=== PATIENT | female | born 1980 | race Caucasian/White ===

== ENCOUNTER → 2016-11-27 | Outpatient (CLI) | payer OTHER ==
[~2016-11-27] MED LIST: FEXO-14 PO; FRS325T PO; LACT1CAP64 PO; MULT-35 PO; PREN1TAB39 PO
--- NOTE | 2016-11-27 11:20 | Diagnostic Imaging Report ---
EXAMINATION: Ultrasound of the liver. INDICATION: Abnormal stool, acholic stool. FINDINGS: The visualized portions of the pancreas appear unremarkable. The liver demonstrates no focal mass. There is hepatopetal flow in the portal vein. The CBD is 4 mm in caliber. The gallbladder demonstrates no stones or wall thickening. The right kidney is 10.3 cm in length with no hydronephrosis or focal lesion. No fluid collection in the upper right abdomen is seen. The sonographic Sahni sign was reportedly negative. IMPRESSION: Unremarkable exam. Dictated by: Dictated on workstation # [id number]
== END ==
LOC: RAD 09:06
PROVIDERS: ATTEND Family Medicine
DX: R19.5 Other fecal abnormalities (principal)
CPT/HCPCS: 76705

== ENCOUNTER 2016-12-06 05:36 | Outpatient (CLI) | payer OTHER ==
[~2016-12-06] VITALS: Ht 157.5 cm; Wt 59.0 kg
[~2016-12-06 05:36] MED LIST changes: -FEXO-14 PO; -LACT1CAP64 PO; -MULT-35 PO
[2016-12-06] MEDS ORDERED: LACT1CAP64 PO (10:17)
[2016-12-06] MEDS ORDERED: MULT-35 PO (10:17)
[2016-12-06] MEDS ORDERED: FEXO-14 PO (10:17)
== END 2016-12-06 10:24 ==
LOC: PREOP 05:36
PROVIDERS: ATTEND Surgery
DX: Z01.818 Encounter for other preprocedural examination (principal); R10.9 Unspecified abdominal pain; R14.0 Abdominal distension (gaseous)

== ENCOUNTER → 2016-12-07 | Outpatient (CLI) | payer OTHER ==
[~2016-12-07] MED LIST changes: +CATHETER FLUSH 10 ML SYR IV PRN; +FEXO-14 PO; +LACT1CAP64 PO; +MULT-35 PO
--- NOTE | 2016-12-07 14:17 | Diagnostic Imaging Report ---
EXAMINATION: HIDA with EF measurements Indication: Abdominal pain TECHNIQUE: After the intravenous administration of 5 mCi of Tc 99m Choletec, imaging over the abdomen was obtained. This was followed by administration of Ensure orally to stimulate intrinsic CCK secretion, followed by continued imaging with ejection fraction measured. FINDINGS: There is homogeneous uptake in the liver with prompt bile duct and gallbladder filling seen. Bowel activity is seen at 25 minutes. Based on further imaging and gallbladder area of interest activity measurements after the administration of Ensure, the gallbladder ejection fraction is estimated at 30%. IMPRESSION: 1. Normal hepatobiliary uptake and Gallbladder filling. 2. Biliary dyskinesia. Reduced gallbladder ejection fraction. Dictated by: Dictated on workstation # [id number]
== END ==
LOC: CARD 10:05
PROVIDERS: ATTEND Surgery
DX: K82.8 Other specified diseases of gallbladder (principal)
CPT/HCPCS: 78227

== ENCOUNTER 2016-12-11 11:02 | Day surgery (SDC) | payer OTHER ==
[~2016-12-11] VITALS: Ht 157.5 cm; Wt 59.0 kg
[~2016-12-11 11:02] MED LIST changes: -CATHETER FLUSH 10 ML SYR IV PRN
[2016-12-11 11:15] VITALS: BP 102/76
[2016-12-11] MEDS ORDERED: FLUMAZENIL (ROMAZICON) 0.1 MG/ML 5 ML VIAL INJ PRN (11:30)
[2016-12-11] MEDS ORDERED: HURRICAINE EXT TUBE (BENZOCAINE) XX PRN (11:30)
[2016-12-11] MEDS ORDERED: NS IV 1000 ML 1,000 ML IV PRN (11:30)
[2016-12-11] MEDS ORDERED: NS IV 1000 ML 1,000 ML ONE (11:36)
[2016-12-11] MEDS ORDERED: proPOfol 200 MG/20 ML (DIPRIVAN) VIAL IV ONE (12:21)
[2016-12-11] MEDS ORDERED: MIDAZOLAM 2 MG/2 ML (VERSED) VIAL ONE (12:21)
[2016-12-11] MEDS ORDERED: HURRICAINE EXT TUBE (BENZOCAINE) ONE (12:22)
--- NOTE | 2016-12-11 12:27 | Progress Note-Pre Operative ---
Pre-Operative Progress Note H&P Reviewed The H&P was reviewed, patient examined and no changes noted. Date H&P Reviewed: Dec 11, 2016 Time H&P Reviewed: 11:48 Pre-Operative Diagnosis: Gastritis, Rectal bleed MELONIE PEREYRA DO Dec 11, 2016 12:27
[2016-12-11 13:10] VITALS: BP 104/56
[2016-12-11 13:40] VITALS: BP 91/62
--- NOTE | 2016-12-11 13:45 | Progress Note-Post Operative ---
Post-Operative Progess Note Surgeon (s)/Education Finance Processor (s) Surgeon MELONIE PEREYRA DO Education Finance Processor: none Pre-Operative Diagnosis Gastritis, Rectal bleed Post-Operative Diagnosis same plus internal hemorrhoids and ??melanosis coli Post-Op Procedure Note Date of Procedure: Dec 11, 2016 Name of Procedure Performed: EGD with biopsy Colonoscopy with biopsy Description of the Procedure: egd, colonoscopy Findings of the Procedure see post op diagnosis Anesthesia Type IV sedation by anesthesiologist Estimated blood loss (mL): scant Specimen(s) collected/removed antral bx colon bx -descending colon and sigmoid MELONIE PEREYRA DO Dec 11, 2016 13:45
[2016-12-11 13:50] VITALS: BP 91/62
--- NOTE | 2016-12-11 14:30 | OPERATIVE REPORT ---
DATE OF SERVICE: 12/11/2016 PREOPERATIVE DIAGNOSES: 1. Gastritis. 2. Rectal bleed. POSTOPERATIVE DIAGNOSES: 1. Gastritis. 2. Rectal bleed. 3. Internal hemorrhoids. 4. 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 PROCEDURE: 1. Esophagogastroduodenoscopy with biopsy. 2. Colonoscopy with cold biopsy. SURGEON: Dr. Colin Sahu UTILITIES SERVICE INVESTIGATOR: None. ANESTHESIA: IV sedation by the anesthesiologist. SPECIMENS: 1. One biopsy from the antrum. 2. One biopsy from the descending colon. 3. One biopsy from the sigmoid. BLOOD LOSS: Scant. FLUIDS: Per anesthesia. POSTOPERATIVE CONDITION: Stable. INDICATION FOR PROCEDURE: The patient is a 36-year-old female who has been having some bloating, abdominal pain, possible heartburn as well as had some rectal bleeding and needed workup FINDINGS: The patient had some gastritis, biopsy was done. She also had what looked like possibly melanosis coli and she had some small internal hemorrhoids, but otherwise no obvious pathology in the colon. PROCEDURE NOTE: After informed consent was obtained, the patient was brought to the endoscopy suite, placed in the left lateral decubitus position. She was administered IV sedation. During the carotid artery stenosis, her vitals were monitored by the anesthesiologist. The scope was inserted down the mouth, down the esophagus and into the stomach. It looked like there was redness in the antrum of the stomach, went into the 1st portion of the duodenum. Maybe a little bit of redness here but it looked otherwise okay. Decided to back out and do a biopsy of the antrum. Took a biopsy and then looked at the rest of the body of the stomach and then retroflexed. Looked like there may have been a small hiatal hernia but no obvious pathology. I then removed the scope. The GE junction looked good. Z-line looked good. Slowly withdrew the scope up into the esophagus and out of the oropharynx. I then switched scopes, went to the other side and did the colonoscopy. Inserted the scope, pushed all the way to about 140 cm where I was able to evaluate the cecum. Took a picture of the appendiceal orifice. Noted the ileocecal valve and able to get into the terminal ileum, took a picture. Then slowly withdrew the scope, insufflating to look circumferentially at the conway, looking at the cecum, up the ascending colon to the hepatic flexure, then down the transverse colon to the splenic flexure and then into the descending colon. I saw some what looked like mild changes in the wall of the colon in this area. I elected to do a biopsy to rule out melanosis coli. I did a biopsy in the descending colon and then down and did another biopsy in the sigmoid. Then continued down into the rectum, retroflexed in the rectal vault. I saw some internal hemorrhoids, took a picture of this and then removed the scope. The patient tolerated the procedure and was transferred to recovery room in stable condition. Job ID: [id number] DocumentID: [id number] Dictated Date: 12/11/2016 13:47:15 Flexographic Printing Machinist Date: 12/11/2016 14:29:24 Dictated By: COLIN SAHU DO
== END 2016-12-11 13:50 | disposition home or self-care (01) ==
LOC: ENDO 11:02
PROVIDERS: ATTEND Surgery
DX: K29.70 Gastritis, unspecified, without bleeding (principal); K64.8 Other hemorrhoids; K62.5 Hemorrhage of anus and rectum
CPT/HCPCS: 84703; 88305

== ENCOUNTER → 2016-12-28 | Outpatient (CLI) | payer OTHER ==
--- NOTE | 2016-12-28 15:38 | Diagnostic Imaging Report ---
Transabdominal and transvaginal pelvic ultrasound. INDICATION: Pelvic pain. Menometrorrhagia. FINDINGS: The uterus is 8.6 x 4.7 x 4.3 cm. The endometrial stripe thickness is 8 mm with a small amount of fluid seen in the endometrial cavity. No myometrial focal mass is seen. The left ovary is 2.4 x 1.7 x 1.8 cm. The right ovary is 3.6 x 2.1 x 3.3 cm. There is a lesion in the right ovary with thickened rim and central cystic area measuring 2.1 x 1.5 x 1.9 cm with increased vascularity likely related to an involuting corpus luteum cyst. Arterial and venous waveforms are seen in the right ovary and arterial waveforms are demonstrated in the left ovary. No significant free fluid or solid mass is seen in the pelvis. IMPRESSION: 1.5 cm lesion in the right ovary is likely an involuting corpus luteum cyst. Dictated by: Dictated on workstation # [id number]
== END ==
LOC: RAD 09:52
PROVIDERS: ATTEND Obstetrics & Gynecology
DX: N92.1 Excessive and frequent menstruation with irregular cycle (principal); N93.8 Other specified abnormal uterine and vaginal bleeding; N83.201 Unspecified ovarian cyst, right side
CPT/HCPCS: 76830; 76856

== ENCOUNTER 2017-03-27 12:44 | Outpatient (CLI) | payer OTHER ==
[~2017-03-27] VITALS: Ht 157.5 cm; Wt 58.5 kg
[2017-03-27 13:00] VITALS: BP 108/70
[2017-03-27 13:24] LABS: BASOPHILS % (AUTO) 1 % (0-10); EOSINOPHILS # (AUTO) 0.4 10^3/uL (0.0-0.3); EOSINOPHILS % (AUTO) 6 % (0-10); LYMPHOCYTES # (AUTO) 1.9 X 10^3 (1.0-4.0); LYMPHOCYTES % (AUTO) 30 % (12-44); MEAN CORPUSCULAR HEMOGLOBIN 26 PG (25-34); MEAN CORPUSCULAR HGB CONC 31 G/DL (32-36); MEAN CORPUSCULAR VOLUME 85 FL (80-99); MEAN PLATELET VOLUME 11.5 FL (7.4-10.4); MONOCYTES # (AUTO) 0.5 X 10^3 (0.0-1.0); MONOCYTES % (AUTO) 7 % (0-12); NEUTROPHILS # (AUTO) 3.6 X 10^3 (1.8-7.8); NEUTROPHILS % (AUTO) 57 % (42-75); PLATELET COUNT 252 10^3/uL (130-400); RED BLOOD COUNT 3.97 10^6/uL (4.35-5.85); WHITE BLOOD COUNT 6.3 10^3/uL (4.3-11.0)
== END 2017-03-27 13:07 | disposition home or self-care (01) ==
LOC: PREOP 12:44
PROVIDERS: ATTEND Surgery
DX: Z01.812 Encounter for preprocedural laboratory examination (principal); Z11.2 Encounter for screening for other bacterial diseases; K82.8 Other specified diseases of gallbladder
CPT/HCPCS: 36415; 85025; 87081

== ENCOUNTER 2017-04-02 08:25 | Day surgery (SDC) | payer OTHER ==
[~2017-04-02] VITALS: Ht 157.5 cm; Wt 58.5 kg
[2017-04-02] MEDS ORDERED: ceFAZolin 2 GM/NS 50 ML IV ONE (09:00)
[2017-04-02] MEDS ORDERED: FAMOTIDINE 20MG/2ML IV (PEPCID) IV ONE (09:15)
[2017-04-02] MEDS ORDERED: SCOPOLAMINE 1.5 MG (TRANSDERM-SCOP) PATCH TOP ONE (09:15)
--- NOTE | 2017-04-02 09:21 | History & Physical-Surgical ---
HPO-Surgical History of Present Illness Chief Complaint: Pt with LUQ pain and pain with all foods, "even water". HIDA scan showed low EF, basically read as biliary dyskinesia. Diagnosis/Surgical Indication: Biliary Dyskinesia, HX of Gastritis, Internal hemorrhoids Procedure: LAPAROSCOPIC CHOLECYSTECTOMY WITH POSSIBLE CHOLANGIOGRAM; POSSIBLE OPEN, umbilical hernia repair Date of Surgery: Apr 02, 2017 Weight (Pounds): 129 Weight (Ounces): 0.0 Height (Feet): 5 Height (Inches): 2.00 Allergies and Home Medications Allergies Coded Allergies: No Known Drug Allergies (Unverified , 12/06/16) Home Medications No Active Prescriptions or Reported Meds Past Ebuvvpf-Fgiydd-Txfecz Hx Patient Social History Alcohol Use: Rarely Uses Recreational Drug Use: No Smoking Status: Never a Smoker Recent Hopitalizations: No Seasonal Allergies Seasonal Allergies: Yes Surgeries HX Surgeries: Yes (WISDOM TEETH) Surgeries: Section Respiratory Hx Respiratory Disorders: No Cardiovascular Hx Cardiovascular Disorders: No Neurological Hx Neurological Disorders: No (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 7) Reproductive System Hx Reproductive Disorders: No Sexually Transmitted Disease: No HIV/AIDS: No Female Reproductive Disorders: Menstrual Problems, Ovarian Cyst Genitourinary Hx Genitourinary Disorders: No Gastrointestinal Hx Gastrointestinal Disorders: Yes (ABD PAIN/BLOATING) Gastrointestinal Disorders: Abdominal Hernia, Chronic Constipation, Hemorrhoids , Gall Bladder Disease Musculoskeletal Hx Musculoskeletal Disorders: No Endocrine Hx Endocrine Disorders: No HEENT HX ENT Disorders: No (GLASSES/CONTACTS) Loss of Vision: Bilateral Hearing Impairment: Denies Cancer Hx Cancer: No Psychosocial Hx Psychiatric Problems: No Integumentary HX Skin/Integumentary Disorder: No Blood Transfusions Hx Blood Disorders: Yes (HX ANEMIA DURING ) Adverse Reaction to a Blood Tr: No Family Medical History Significant Family History: Cancer (mother), Hypertension (mother) Exam Vital Signs Capillary Refill : Labs Laboratory Tests Test 04/02/17 08:40 Range/Units Urine Test NEGATIVE NEGATIVE General Appearance: Alert, Oriented X3, No Acute Distress HEENT: Atraumatic, PERRLA, EOMI Respiratory: Clear to Auscultation, Normal Air Movement Cardiovascular: Regular Rate, No Murmurs Abdominal: Normal Bowel Sounds, Soft, No Hepatosplenomegaly Extremities: No Edema, No Tenderness/Swelling Skin: No Rashes, No Significant Lesion Neuro: Normal Gait, Normal Speech, Cranial Nerves 3-12 NL Psych/Mental Status: Mental Status NL Assessment/Plan Assessment and Plan Biliary Dyskinesia ?? small UH Plan Lap carlota with possible IOC, possible open. Risks and complications discussed, not limited to pain, bleeding, infection, scar, damage to bowel or bile ducts. All Questions answered to her satisfaction. Problems: MELONIE PEREYRA DO Apr 02, 2017 09:21
[2017-04-02] MEDS: LACTATED RINGERS 1,000 ML IV PRN ×2 (09:25→10:49)
[2017-04-02 09:32] VITALS: BP 105/73
[2017-04-02] MEDS ORDERED: LIDOCAINE/EPI 1%-1:200,000 (XYLOCAINE) 30 ML VIAL ONE (09:54)
[2017-04-02] MEDS ORDERED: MIDAZOLAM 2 MG/2 ML (VERSED) VIAL ONE (10:04)
[2017-04-02] MEDS ORDERED: fentaNYL INJECTION 250 MCG/5 ML AMP ONE (10:04)
[2017-04-02] MEDS ORDERED: ONDANSETRON 4 MG/2 ML (SDV) Z0FRAN ONE (10:12)
[2017-04-02] MEDS ORDERED: LACTATED RINGERS 0 ML IV ONE (10:12)
[2017-04-02] MEDS ORDERED: ROCURONIUM 50 MG/5 ML (ZEMURON) VIAL IV ONE (10:12)
[2017-04-02] MEDS ORDERED: SEVOFLURANE (ULTANE) 15 ML INHAL SOLN ONE ×4 (10:12→10:39)
[2017-04-02] MEDS ORDERED: proPOfol 200 MG/20 ML (DIPRIVAN) VIAL IV ONE (10:12)
[2017-04-02] MEDS ORDERED: LIDOCAINE PF 2% 5 ML (XYLOCAINE) VIAL ONE (10:39)
[2017-04-02] MEDS ORDERED: LACTATED RINGERS 1,000 ML IV ONE ×2 (10:39→10:48)
[2017-04-02] MEDS ORDERED: KETOROLAC 30 MG/ML VIAL IVP ONE (10:45)
[2017-04-02] MEDS ORDERED: ONDANSETRON 4 MG/2 ML (SDV) Z0FRAN IVP PRN (10:45)
[2017-04-02] MEDS ORDERED: HYDROmorphone (DILAUDID) 2 MG/ML VIAL IVP PRN (10:45)
[2017-04-02] MEDS ORDERED: DEXAMETHASONE PF 10 MG/ML (DECADRON) VIAL ONE (10:48)
[2017-04-02] MEDS ORDERED: GLYCOPYRROLATE 0.2 MG/ML (ROBINUL) 2 ML VIAL ONE (10:54)
[2017-04-02] MEDS ORDERED: NEOSTIGMINE (BLOXIVERZ ) 1 MG/1ML 10 ML VIAL ONE (10:54)
--- NOTE | 2017-04-02 11:02 | Progress Note-Post Operative ---
Post-Operative Progess Note Surgeon (s)/Doll Wig Maker (s) Surgeon MELONIE PEREYRA DO Doll Wig Maker: Lauren Pre-Operative Diagnosis Biliary Dyskinesia, HX of Gastritis, Internal Hemorrhoids Post-Operative Diagnosis Same, small UH Procedure & Operative Findings Date of Procedure 04/02/17 Procedure Performed/Findings Lap carlota with IOC Anesthesia Type GET 20ml Local lidocaine Estimated Blood Loss Estimated blood loss (mL): scant Specimens/Packing Specimens Removed GB and contents MELONIE PEREYRA DO Apr 02, 2017 11:02
[2017-04-02] MEDS ORDERED: HYDR-3812 PO (11:03)
--- NOTE | 2017-04-02 11:06 | Discharge Inst-Surgical ---
Discharge Inst-Surgical Depart Medication/Instructions New, Converted or Re-Newed RX: RX Given to Pt/Family Patient Instructions Follow up Appt: Make appointment for 1 week, . Instructions: No lifting greater than 10 pounds. No strenuous activity. May shower in 24 hours, no tub bath or soaking. Use incentive spirometer at home as directed. No Smoking Skin/Wound Care: May remove bandages. You need to leave the Dermabond on, it will fall off on its own. Symptoms to Report: Appetite Changes, Extremity Discoloration, Numbness/Tingling, Swelling Increased , Bleeding Excessive, Eyesight Changes, Pain Increased, Urine Color Change, Constipation(Persistent), Fever over 101 degree F, Pain/Pressure in chest, Urinating Difficulty, Cough Up/Vomit Blood, Heart Beat Irreg/Pounding, Pain/ Pressure in jaw, Vaginal Bleeding Increase, Cramps in feet or legs, Lightheadedness, Pain/Pressure in shoulder, Diarrhea(Persistent), Memory Changes Suddenly, Questions/Concerns, Weight gain consecutive days, Dizziness/ Fainting, Nausea/Vomiting, Shortness of Breath, Weight gain over 2 pounds. If eyes or skin turn yellow notify physician. If questions or concerns contact your physician Or seek help at emergency department. Activity Activity as Tolerated: Yes Activity Instructions: Avoid Pulling & Pushing, Avoid Stress to Incision Driving Instructions: No Driving/Refer to Dr. Nettles Discharge Diet: Avoid Fatty Foods (no fried foods) Diet After 24 Hours: Clear Liquid if Nauseous If Any Problems/Questions/Issu: Contact Your Physician, Go to Emergency Room Skin/Wound Care Infection Signs and Symptoms: Increased Redness, Foul Odor of Wound, Increased Drainage, Skin Itchy or Has a Rash, Increased Swelling, Temperature Above 101 F Wound Care Comment: Heating pad to neck or shoulder blade tonight for pain Stitches/[place]/Dermabond Dis: Dermabond Ice Pack: Ice On and Off Site MELONIE PEREYRA DO Apr 02, 2017 11:06
[2017-04-02] MEDS ORDERED: KETOROLAC 30 MG/ML VIAL ONE (11:19)
[2017-04-02] MEDS ORDERED: morphine INJ 10 MG/ML 1ML (SYR OR VIAL) ONE (11:20)
[2017-04-02] MEDS: morphine INJ 10 MG/ML 1ML (SYR OR VIAL) IVP PRN ×2 (11:35→11:40)
[2017-04-02 12:10] VITALS: BP 102/67
--- NOTE | 2017-04-02 12:33 | Anesthesia-General Post-Op ---
General Patient Condition Mental Status/LOC: Same as Preop Cardiovascular: Satisfactory Nausea/Vomiting: Absent Respiratory: Satisfactory Pain: Controlled Complications: Absent Post Op Complications Complications None Follow Up Care/Instructions Patient Instructions None needed. Anesthesia/Patient Condition Patient Condition Patient is doing well, no complaints, stable vital signs, no apparent adverse anesthesia problems. No complications reported per nursing. D/C home per [facility] Criteria: BLACK Biswas DO Apr 02, 2017 12:33
[2017-04-02 12:40] VITALS: BP 101/67
[2017-04-02 13:10] VITALS: BP 101/64
--- NOTE | 2017-04-02 13:36 | Diagnostic Imaging Report ---
EXAMINATION: Fluoroscopy INDICATION: Left cholecystectomy, abdominal pain Fluoroscopic assistance was provided for Dr. Colin Sahu, during his laparoscopic cholecystectomy procedure. 14 seconds of fluoroscopy time was utilized. Multiple spot films of the right upper quadrant were received from the OR. The common bile duct has been opacified via the cystic duct catheter. The duct, where visualized shows no sign of a retained calyxes. There is extension of the contrast into the small bowel. There is also extravasation of the contrast. IMPRESSION: The common bile duct, where visualized, shows no evidence for retained calculus. Dictated by: Dictated on workstation # [id number]
--- NOTE | 2017-04-02 16:15 | OPERATIVE REPORT ---
DATE OF SERVICE: 04/02/2017 PREOPERATIVE DIAGNOSES: Biliary dyskinesia, possible small umbilical hernia. POSTOPERATIVE DIAGNOSES: Biliary dyskinesia, possible small umbilical hernia. PROCEDURE: Laparoscopic cholecystectomy, intraoperative cholangiogram. SURGEON: Colin Sahu DO. POLICE LIEUTENANT PRECINCT: Dr. Aguilar. ANESTHESIA: General endotracheal tube with approximately 20 mL of local injected by myself. SPECIMEN: Gallbladder and contents. BLOOD LOSS: Scant. FLUIDS: Per anesthesia. POSTOPERATIVE CONDITION: Stable. INDICATION FOR PROCEDURE: The patient is a 36-year-old female, who has been having abdominal pain usually in the left upper quadrant, but she had a HIDA scan which showed a low ejection fraction, which was diagnostic for biliary dyskinesia. She had pain with all foods and she decided she wanted to get her gallbladder removed with the understanding that removing it may not take care of all her complaints. FINDINGS: The patient had a mildly distended gallbladder, which was indicative of some biliary dyskinesia. She also had, looked like a muscle band coming across it, which may have also been affecting her biliary problems possibly slowing down the release of the bile from the gallbladder, some small adhesions but no other obvious pathology. PROCEDURE NOTE: After informed consent was obtained, the patient was brought to the operating room, placed on the table in supine position. She was sterilely prepped and draped in a normal fashion. Local lidocaine was used to infiltrate the skin below the umbilicus. The incision #11 blade, carried down through the skin and the subcutaneous tissue then deepened down the subcutaneous tissue with Bovie electrocautery down to the fascia. Fascia incised with Bovie electrocautery and bluntly entered the abdomen, swept the finger around, placed 0 Vicryl [id number] suture. There was a very small umbilical hernia tried to hopefully get this with 0 Vicryl suture to be placed. We placed an 11 mm trocar port under direct visualization, created pneumoperitoneum and then placed 3 more ports in a normal fashion using local lidocaine. An 11 blade for stab incision and the VersaStep system, all done under direct visualization, one in subxiphoid and 2 in the right lower quadrant. The patient was then placed slightly in reverse Trendelenburg and rotated left. Able to visualize the gallbladder and grasp the fundus and taken in superior direction. Noted a band coming across the gallbladder kind of bisecting this with a larger portion distally and a small portion superiorly. It looked like it might have been cystic artery. Able to grasp down the Candida's pouch and pulled it from a lateral direction started dissecting off small adhesions. Once these were freed then able to get around the cystic duct and the cystic artery and placed 1 clip distally in the cystic duct and one distally and 2 proximally in the cystic artery. Cut the cystic duct longterm through with Metzenbaum scissors. Placed a cholangiogram catheter and shot a cholangiogram. Good spillage of dye down the common bile duct into the small intestine. The balloon was in the common bile duct, so I did not go up above the cystic duct, but could see the common and the cystic duct takeoff, so removed the cholangiogram catheter, placed 2 clips proximally on the cystic duct then cut the cystic duct and cystic artery with Metzenbaum scissors and removed gallbladder from bed liver with electrocautery and once it was completely removed, placed a bag in the abdomen, and placed the gallbladder in the bag and then removed this through the infraumbilical incision. We then placed the port back in. Copiously irrigated with normal saline and suctioned out, took pictures and at this point then placed the patient in supine and removed all ports under direct visualization, allowing pneumoperitoneum to escape as well as suctioned out. Closing infraumbilical incision with the 0 Vicryl suture previously placed. Copiously irrigated all incisions with normal saline. Closed in 3-small 5-mm incisions with single interrupted 4-0 undyed Monocryl subcuticular stitch. Closed the infraumbilical incision with 3 interrupted 4-0 undyed Monocryl subcuticular stitches. Area was cleaned and dried and Dermabond placed. The patient was then transferred to recovery room in stable condition. Sponge, instrument and needle counts correct at the end of the case. Dr. Aguilar assisted in this case by making incisions, placing trocars, and helping to identify anatomy and hold gallbladder up and out of the way as well as closing incisions. Her heart was vital. Job ID: [id number] DocumentID: [id number] Dictated Date: 04/02/2017 11:12:11 Pulp Grinder Date: 04/02/2017 15:43:13 Dictated By: DO TONG MAGANA
== END 2017-04-02 13:35 | disposition home or self-care (01) ==
LOC: SDC 08:25
PROVIDERS: ATTEND Surgery
DX: K81.1 Chronic cholecystitis (principal); J45.909 Unspecified asthma, uncomplicated
CPT/HCPCS: 84703; 88304; 94664

== ENCOUNTER 2017-04-06 03:22 | Observation (INO) | payer OTHER ==
[~2017-04-06] VITALS: Ht 157.5 cm; Wt 59.0 kg
[~2017-04-06 03:22] MED LIST changes: +HYDR-3812 PO
[2017-04-06] MEDS ORDERED: ONDANSETRON 4 MG/2 ML (SDV) Z0FRAN ONE (03:28)
[2017-04-06] MEDS ORDERED: fentaNYL INJECTION 100 MCG/2 ML AMP ONE (03:28)
[2017-04-06] MEDS ORDERED: NS IV 1000 ML 1,000 ML IV ONE (03:32)
[2017-04-06] MEDS ORDERED: ONDANSETRON 4 MG/2 ML (SDV) Z0FRAN IVP ONE (03:45)
[2017-04-06] MEDS ORDERED: fentaNYL INJECTION 100 MCG/2 ML AMP IVP ONE (03:45)
[2017-04-06 03:48] LABS: BASOPHILS % (AUTO) 1 % (0-10); EOSINOPHILS # (AUTO) 0.4 10^3/uL (0.0-0.3); EOSINOPHILS % (AUTO) 6 % (0-10); LYMPHOCYTES # (AUTO) 2.4 X 10^3 (1.0-4.0); LYMPHOCYTES % (AUTO) 39 % (12-44); MEAN CORPUSCULAR HEMOGLOBIN 26 PG (25-34); MEAN CORPUSCULAR HGB CONC 31 G/DL (32-36); MEAN CORPUSCULAR VOLUME 85 FL (80-99); MEAN PLATELET VOLUME 11.4 FL (7.4-10.4); MONOCYTES # (AUTO) 0.6 X 10^3 (0.0-1.0); MONOCYTES % (AUTO) 9 % (0-12); NEUTROPHILS # (AUTO) 2.9 X 10^3 (1.8-7.8); NEUTROPHILS % (AUTO) 47 % (42-75); PLATELET COUNT 238 10^3/uL (130-400); RED BLOOD COUNT 4.18 10^6/uL (4.35-5.85); RED CELL DISTRIBUTION WIDTH 13.7 % (10.0-14.5); WHITE BLOOD COUNT 6.2 10^3/uL (4.3-11.0)
[2017-04-06] MEDS ORDERED: HYDROmorphone (DILAUDID) 2 MG/ML VIAL ONE (03:50)
[2017-04-06] MEDS ORDERED: HYDROmorphone (DILAUDID) 2 MG/ML VIAL IVP STA ×2 (03:55→04:20)
[2017-04-06 04:08] LABS: ALANINE AMINOTRANSFERASE 32 U/L (0-55); ALBUMIN 3.9 GM/DL (3.2-4.5); ANION GAP 13 MMOL/L (5-14); ASPARTATE AMINO TRANSFERASE 31 U/L (5-34); BILIRUBIN,TOTAL 0.3 MG/DL (0.1-1.0); BLOOD UREA NITROGEN 15 MG/DL (7-18); BUN/CREATININE RATIO 19; CALCIUM 9.3 MG/DL (8.5-10.1); CARBON DIOXIDE 22 MMOL/L (21-32); CHLORIDE 105 MMOL/L (98-107); CREATININE SERUM 0.78 MG/DL (0.60-1.30); GFR ESTIMATED > 60; GLUCOSE 118 MG/DL (70-105); LIPASE 40 U/L (8-78); POTASSIUM 3.7 MMOL/L (3.6-5.0); SODIUM 140 MMOL/L (135-145); TOTAL PROTEIN 7.3 GM/DL (6.4-8.2); hs C REACTIVE PROTEIN 0.64 MG/DL (0.00-0.50)
[2017-04-06] MEDS ORDERED: PROMETHAZINE INJ 25 MG/ML (PHENERGAN) AMP ONE (04:15)
--- NOTE | 2017-04-06 04:25 | ED Abdominal Pain ---
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 PT REPORTS SHE HAD A LAP ANILA X5 DAYS AGO. Sepsis Screen: No Definite Risk Source of Information: Patient Exam Limitations: No Limitations History of Present Illness Time Seen By Provider: 03:27 Initial Comments This 36-year-old woman presents to the emergency room with complaints of right upper quadrant, epigastric, lower chest and right flank pain that started about 30 minutes prior to arrival. She also has significant shortness of air. She was able to drive herself to the emergency room. She had a laparoscopic cholecystectomy with Dr. Pereyra on April 01. She denies any cough, fever, or vomiting. Her last bowel movement was yesterday but she had no bowel movements for 5 days prior to that. She used milk of magnesia to produce the bowel movement. She has been using hydrocodone at home which has not been helpful for this pain. Allergies and Home Medications Allergies Coded Allergies: No Known Drug Allergies (Unverified , 12/06/16) Home Medications Hydrocodone/Acetaminophen 1 Each Tablet, 1 TAB PO Q6H PRN, #10 Ref 0 Prescribed by: MELONIE PEREYRA on 04/02/17 1103 Review of Systems Constitutional: chills, No fever EENTM: No Symptoms Reported Respiratory: See HPI Cardiovascular: See HPI Gastrointestinal: See HPI Genitourinary: No Symptoms Reported Musculoskeletal: no symptoms reported Skin: no symptoms reported Psychiatric/Neurological: No Symptoms Reported Endocrine: No Symptoms Reported Past Sonluli-Rkdlzs-Jwllia Hx Patient Social History Alcohol Use: Denies Use Recreational Drug Use: No Smoking Status: Never a Smoker Recent Foreign Travel: No Contact w/Someone Who Travel: No Recent Infectious Disease Expo: No Recent Hopitalizations: No Immunizations Up To Date Tetanus Booster (TDap): Unknown Seasonal Allergies Seasonal Allergies: Yes Surgeries HX Surgeries: Yes (WISDOM TEETH) Surgeries: Section, Gallbladder Respiratory Hx Respiratory Disorders: No Cardiovascular Hx Cardiac Disorders: No Neurological Hx Neurological Disorders: No (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 pylori) Gastrointestinal Disorders: Abdominal Hernia, Chronic Constipation, Hemorrhoids , Gall Bladder Disease Musculoskeletal Hx Musculoskeletal Disorders: No Endocrine Hx Endocrine Disorders: No HEENT HX ENT Disorders: No (GLASSES/CONTACTS) Loss of Vision: Bilateral Hearing Impairment: Denies Cancer Hx Cancer: No Psychosocial Hx Psychiatric Problems: No Integumentary HX Skin/Integumentary Disorder: No Blood Transfusions Hx Blood Disorders: Yes (HX ANEMIA DURING ) Adverse Reaction to a Blood Tr: No Family Medical History Significant Family History: Cancer, Hypertension Physical Exam Vital Signs VS - Last 72 Hours, by Label 04/06/17 04/06/17 03:26 05:43 Temp 96.1 Pulse 101 78 Resp 20 14 B/P (MAP) 132/92 129/88 Pulse Ox 98 100 O2 Delivery Room Air Room Air Capillary Refill : Less Than 3 Seconds General Appearance: WD/WN, moderate distress HEENT: PERRL/EOMI, normal ENT inspection Neck: normal inspection Respiratory: chest non-tender, lungs clear, normal breath sounds, no respiratory distress, no accessory muscle use Cardiovascular: regular rate, rhythm, no edema, no murmur Gastrointestinal: normal bowel sounds, soft, tenderness (epigastrium and right upper quadrant) Extremities: normal inspection, no pedal edema 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, no motor/sensory deficits, alert, normal mood/affect, oriented x 3 Skin: normal color, warm/dry Progress/Results/Core Measures Results/Orders Lab Results Laboratory Tests Test 04/06/17 03:31 04/06/17 04:57 Range/Units White Blood Count 6.2 4.3-11.0 10^3/uL Red Blood Count 4.18 L 4.35-5.85 10^6/uL Hemoglobin 11.0 L 11.5-16.0 G/DL Hematocrit 36 35-52 % Mean Corpuscular Volume 85 80-99 FL Mean Corpuscular Hemoglobin 26 25-34 PG Mean Corpuscular Hemoglobin Concent 31 L 32-36 G/DL Red Cell Distribution Width 13.7 10.0-14.5 % Platelet Count 238 130-400 10^3/uL Mean Platelet Volume 11.4 H 7.4-10.4 FL Neutrophils (%) (Auto) 47 42-75 % Lymphocytes (%) (Auto) 39 12-44 % Monocytes (%) (Auto) 9 0-12 % Eosinophils (%) (Auto) 6 0-10 % Basophils (%) (Auto) 1 0-10 % Neutrophils # (Auto) 2.9 1.8-7.8 X 10^3 Lymphocytes # (Auto) 2.4 1.0-4.0 X 10^3 Monocytes # (Auto) 0.6 0.0-1.0 X 10^3 Eosinophils # (Auto) 0.4 H 0.0-0.3 10^3/uL Basophils # (Auto) 0.0 0.0-0.1 10^3/uL Sodium Level 140 135-145 MMOL/L Potassium Level 3.7 3.6-5.0 MMOL/L Chloride Level 105 98-107 MMOL/L Carbon Dioxide Level 22 21-32 MMOL/L Anion Gap 13 5-14 MMOL/L Blood Urea Nitrogen 15 7-18 MG/DL Creatinine 0.78 0.60-1.30 MG/DL Estimat Glomerular Filtration Rate > 60 BUN/Creatinine Ratio 19 Glucose Level 118 H 70-105 MG/DL Calcium Level 9.3 8.5-10.1 MG/DL Total Bilirubin 0.3 0.1-1.0 MG/DL Aspartate Amino Transf (AST/SGOT) 31 5-34 U/L Alanine Aminotransferase (ALT/SGPT) 32 0-55 U/L Alkaline Phosphatase 60 40-136 U/L C-Reactive Protein High Sensitivity 0.64 H 0.00-0.50 MG/DL Total Protein 7.3 6.4-8.2 GM/DL Albumin 3.9 3.2-4.5 GM/DL Lipase 40 8-78 U/L Serum Test, Qualitative NEGATIVE NEGATIVE Urine Color YELLOW Urine Clarity SLIGHTLY CLOUDY Urine pH 7 5-9 Urine Specific [place] 1.010 L 1.016-1.022 Urine Protein 1+ H NEGATIVE Urine Glucose (UA) NEGATIVE NEGATIVE Urine Ketones NEGATIVE NEGATIVE Urine Nitrite NEGATIVE NEGATIVE Urine Bilirubin NEGATIVE NEGATIVE Urine Urobilinogen NORMAL NORMAL MG/DL Urine Leukocyte Esterase 2+ H NEGATIVE Urine RBC (Auto) NEGATIVE NEGATIVE Urine RBC NONE /HPF Urine WBC 0-2 /HPF Urine Squamous Epithelial Cells 10-25 H /HPF Urine Crystals NONE /LPF Urine Bacteria TRACE /HPF Urine Casts NONE /LPF Urine Mucus SMALL H /LPF Urine Culture Indicated NO My Orders Orders - BRUEGGEMANN,JESSI T MD Fentanyl Injection (Sublimaze Injection (04/06/17 03:45) Ondansetron Injection (Zofran Injectio (04/06/17 03:45) Cbc With Automated Diff (04/06/17 03:32) Comprehensive Metabolic Panel (04/06/17 03:32) Hs C Reactive Protein (04/06/17 03:32) Lipase (04/06/17 03:32) Ua Culture If Indicated (04/06/17 03:32) Saline Lock/Iv-Start (04/06/17 03:32) Ns Iv 1000 Ml (Sodium Chloride 0.9%) (04/06/17 03:32) Fentanyl Injection (Sublimaze Injection (04/06/17 03:28) Ondansetron Injection (Zofran Injectio (04/06/17 03:28) Hcg,Qualitative Serum (04/06/17 03:44) Hydromorphone Injection (Dilaudid Inject (04/06/17 03:55) Hydromorphone Injection (Dilaudid Inject (04/06/17 03:50) Ct Katie Chest/Noang Abd-Pelv W (04/06/17 04:04) Promethazine Injection (Phenergan Injec (04/06/17 04:30) Hydromorphone Injection (Dilaudid Inject (04/06/17 04:20) Promethazine Injection (Phenergan Injec (04/06/17 04:15) Iohexol Injection (Omnipaque 350 Mg/Ml 1 (04/06/17 04:45) Ns (Ivpb) (Sodium Chloride 0.9% Ivpb Bag (04/06/17 04:45) Lidocaine 2% Viscous 15 Ml (Xylocaine Vi (04/06/17 06:00) Antacid Suspension (Mylanta Suspension (04/06/17 06:00) Famotidine Injection (Pepcid Injection) (04/06/17 05:50) Ketorolac Injection (Toradol Injection) (04/06/17 07:15) Medications Given in ED Current Medications Medications Dose Ordered Sig/Dm Route Start Time Stop Time Status Last Admin Dose Admin Al Hydrox/Mg Hydrox/Simethicone 30 ml ONCE ONCE PO 04/06/17 06:00 04/06/17 06:01 DC 04/06/17 05:58 30 ML Fentanyl Citrate 75 mcg ONCE ONCE IVP 04/06/17 03:45 04/06/17 03:46 DC 04/06/17 03:36 75 MCG Iohexol 150 ml ONCE ONCE IV 04/06/17 04:45 04/06/17 04:46 DC 04/06/17 04:35 125 ML Lidocaine HCl 15 ml ONCE ONCE PO 04/06/17 06:00 04/06/17 06:01 DC 04/06/17 05:58 15 ML Ondansetron HCl 8 mg ONCE ONCE IVP 04/06/17 03:45 04/06/17 03:46 DC 04/06/17 03:37 8 MG Promethazine HCl 12.5 mg ONCE ONCE IVP 04/06/17 04:30 04/06/17 04:31 DC 04/06/17 04:26 12.5 MG Sodium Chloride 100 ml ONCE ONCE IV 04/06/17 04:45 04/06/17 04:46 DC 04/06/17 04:35 80 ML Sodium Chloride 1,000 ml @ 0 mls/hr Q0M ONCE IV 04/06/17 03:32 04/06/17 03:34 DC 04/06/17 03:39 1,000 MLS/HR Vital Signs/I&O Vital Sign - Last 12Hours 04/06/17 04/06/17 03:26 05:43 Temp 96.1 Pulse 101 78 Resp 20 14 B/P (MAP) 132/92 129/88 Pulse Ox 98 100 O2 Delivery Room Air Room Air Blood Pressure Mean: 105 Progress Note #1: Time: 04:24 Progress Note Patient received fentanyl followed by Dilaudid for pain. Zofran was used for nausea. CT angiogram of the chest and CT of the abdomen and pelvis with contrast were ordered for further evaluation. Patient was unable to lie still for the CT scans due to pain and gagging. Phenergan and an additional 1 mg of Dilaudid were ordered for administration in CT. Progress Note #2: Time: 05:[address] scans revealed no pathology to account for patient's pain. GI cocktail and Pepcid will be administered. Progress Note #3: Time: 06:58 Progress Note GI cocktail and Pepcid did not improve her pain. Case was reviewed with Dr. Beal. He suggested discussing imaging with the radiologist again to determine if there is any evidence of bile leak. I did discuss with Dr. Gee with [facility]. There is no definite evidence of leak but this cannot be ruled out. She suggested following the CT with a hepatobiliary scan. Per prior discussion with Dr. Ronquillo, patient will be admitted for HIDA scan. Diagnostic Imaging Diagonstic Imaging: CT Plain Films/CT/US/NM/MRI: chest, abdomen, pelvis Comments CT of the chest, abdomen, and pelvis with angiogram of the chest viewed by me and report reviewed. No acute findings to account for her pain were identified. Specifically, there was no pulmonary embolus. Departure Communication Time/Spoke to Admitting Phy: 05:[address] Pereyra Impression Impression: Primary Impression: Epigastric pain Additional Impressions: Chest pain Qualified Codes: R07.9 - Chest pain, unspecified Nausea Disposition: ADMITTED INPATIENT Condition: Stable Admissions Decision to Admit Reason: Admit from ER (General) Decision to Admit/Date: Apr 06, 2017 Time/Decision to Admit Time: 06:50 Departure-Patient Inst. Referrals: VERONICA MARIN MD (PCP/Family) Primary Care Physician JESSI HOSKINS MD Apr 06, 2017 04:25
[2017-04-06] MEDS ORDERED: PROMETHAZINE INJ 25 MG/ML (PHENERGAN) AMP IVP ONE (04:30)
[2017-04-06] MEDS ORDERED: IOHEXOL 350 MG/ML 150 ML (OMNIPAQUE 350) VIAL IV ONE (04:45)
[2017-04-06] MEDS ORDERED: NS 100 ML (IVPB) BAG IV ONE (04:45)
[2017-04-06 05:08] LABS: BILIRUBIN,URINE NEGATIVE (NEGATIVE); KETONES,URINE NEGATIVE (NEGATIVE); LEUKOCYTE ESTERASE ,URINE 2+ (NEGATIVE); NITRITE,URINE NEGATIVE (NEGATIVE); PH,URINE 7 (5-9); PROTEIN,URINE 1+ (NEGATIVE); UROBILINOGEN,URINE NORMAL (NORMAL)
[2017-04-06 05:09] LABS: WBC,URINE 0-2 /HPF
[2017-04-06 05:43] VITALS: BP 129/88
[2017-04-06] MEDS ORDERED: FAMOTIDINE 20MG/2ML IV (PEPCID) IV STA (05:50)
[2017-04-06] MEDS ORDERED: ANTACID SUSP 30 ML UDC (MYLANTA) PO ONE (06:00)
[2017-04-06] MEDS ORDERED: LIDOCAINE 2% VISCOUS 15 ML UDC PO ONE (06:00)
[2017-04-06] MEDS ORDERED: KETOROLAC 30 MG/ML VIAL IVP ONE (07:15)
--- NOTE | 2017-04-06 08:08 | Diagnostic Imaging Report ---
INDICATION: Right upper quadrant pressure radiating to the right flank. Onset 30 minutes prior to the presentation. 4 days post laparoscopic cholecystectomy. TECHNIQUE: CT imaging of the chest following the administration of intravenous contrast with multiplanar including MIP reformatted images. Additional imaging through the abdomen and pelvis postcontrast. CORRELATION STUDY: CT chest 03/01/2015 CTA chest findings: There is no filling defect in the pulmonary arterial tree to suggest pulmonary embolism. Thoracic aorta unremarkable. Heart size normal. No pathologically enlarged mediastinal lymph nodes. Lung medina are clear. No infiltrate, effusion or pneumothorax. IMPRESSION: 1. No CT evidence for pulmonary embolism or otherwise acute intrathoracic abnormality. CT abdomen and pelvis findings: The patient is post cholecystectomy. Small amount of free fluid is noted in gallbladder fossa and subhepatic space. There is mild prominence of the intrahepatic bile ducts. Common bile duct appears to be normal in caliber. Additional small amount of free fluid within the pelvis. Two tiny foci of free air in the right upper quadrant laparoscopic portal site and in the subhepatic space present. The liver, spleen, pancreas, adrenal glands and kidneys are otherwise unremarkable. Abdominal aorta unremarkable. Gastrointestinal tract demonstrates no obstruction or inflammation. Uterus and right adnexa unremarkable. A 4.4 cm cyst in the left adnexa likely associated with the left ovary. IMPRESSION: 1. Status post cholecystectomy. Expected postoperative findings present. There is a small amount of free fluid in the right upper quadrant and in the pelvis. No definitive drainable abscess suggested at this time. 2. A 4.4 cm left ovarian cyst. A preliminary report was provided by [employer]. Dictated by: Dictated on workstation # [id number]
[2017-04-06 08:10] VITALS: BP_SYST 102; BP_SYST 130; BP_DIAS 68; BP_DIAS 78
[2017-04-06] MEDS ORDERED: HYDR-3812 PO (08:13)
[2017-04-06] MEDS: D5 NS 1000 ML IV SOLUTION 1,000 ML IV SCH ×2 (08:19→18:38)
[2017-04-06] MEDS: PANTOPRAZOLE 40 MG/10 ML (PROTONIX) VIAL IV SCH (08:20)
[2017-04-06] MEDS: CATHETER FLUSH 10 ML SYR IV PRN (08:44)
[2017-04-06] MEDS ORDERED: POLYETHYLENE GLYCOL 17 GM (MIRALAX) PACK PO NR (10:40)
--- NOTE | 2017-04-06 10:41 | History & Physical-Surgical ---
History of Present Illness History of Present Illness Reason for visit/HPI Pt had cholecystectomy on Sunday, stated she had normal postoperative pain until 4 am this morning. In ED pt stated: This 36-year-old woman presents to the emergency room with complaints of right upper quadrant, epigastric, lower chest and right flank pain that started about 30 minutes prior to arrival. She also has significant shortness of air. She was able to drive herself to the emergency room. She denies any cough, fever, or vomiting. Her last bowel movement was yesterday but she had no bowel movements for 5 days prior to that. She used milk of magnesia to produce the bowel movement. She has been using hydrocodone at home which has not been helpful for this pain. Now she still has moderate to severe epigastric pain and pin in right flank, controlled with iv pain meds. Pt is thirsty and would like something to drink. Date of Admission Apr 06, 2017 at 06:55 Time Seen by Provider: 09:56 I consulted on this patient on 04/06/17 10:35 Attending Physician Colin Pereyra DO Admitting Physician Dora Flores MD Consult Allergies and Home Medications Allergies Coded Allergies: No Known Drug Allergies (Unverified , 12/06/16) Home Medications Hydrocodone/Acetaminophen 1 Each Tablet, 1 TAB PO Q6H PRN for PAIN-MODERATE, #10 (Reported) Past Kjasyix-Fmnazl-Zaulzh Hx Patient Social History Alcohol Use: Denies Use Recreational Drug Use: No Smoking Status: Never a Smoker Recent Foreign Travel: No Contact w/Someone Who Travel: No Recent Infectious Disease Expo: No Recent Hopitalizations: No Immunizations Up To Date Tetanus Booster (TDap): Unknown Seasonal Allergies Seasonal Allergies: Yes Surgeries HX Surgeries: Yes (WISDOM TEETH) Surgeries: Section, Gallbladder Respiratory Hx Respiratory Disorders: No Cardiovascular Hx Cardiac Disorders: No Neurological Hx Neurological Disorders: No (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 pylori) Gastrointestinal Disorders: Abdominal Hernia, Chronic Constipation, Hemorrhoids , Gall Bladder Disease Musculoskeletal Hx Musculoskeletal Disorders: No Endocrine Hx Endocrine Disorders: No HEENT HX ENT Disorders: No (GLASSES/CONTACTS) Loss of Vision: Bilateral Hearing Impairment: Denies Cancer Hx Cancer: No Psychosocial Hx Psychiatric Problems: No Integumentary HX Skin/Integumentary Disorder: No Blood Transfusions Hx Blood Disorders: Yes (HX ANEMIA DURING ) Adverse Reaction to a Blood Tr: No Family Medical History Significant Family History: Cancer, Hypertension Constitutional: No chills, No diaphoresis EENTM: No hearing loss, No blurred vision, No epistaxis, No nose congestion Respiratory: No hemoptysis, No phlegm, short of breath Cardiovascular: chest pain, No edema, No palpitations Gastrointestinal: RUQ, abdominal pain (epigastric), nausea Physical Exam Vital Signs Vital Sign - Last 12Hours 04/06/17 03:26 Temp 96.1 Pulse 101 Resp 20 B/P (MAP) 132/92 Pulse Ox 98 O2 Delivery Room Air Capillary Refill : Less Than 3 Seconds General Appearance: WD/WN, Moderate Distress Eyes: Bilateral Eye PERRL, Bilateral Eye EOMI HEENT: Pharynx Normal, No Pale Conjunctivae (L), No Pale Conjunctivae (R), No Scleral Icterus (L), No Scleral Icterus (R) Neck: Normal Inspection, Supple, No Thyromegaly Respiratory: Lungs Clear, Normal Breath Sounds, No Accessory Muscle Use, No Respiratory Distress Cardiovascular: Regular Rate, Rhythm, No Murmur Gastrointestinal: No Organomegaly, Soft, Abnormal Bowel Sounds (decreased), No Distended, Guarding (voluntary) Back: No CVA Tenderness, No Vertebral Tenderness Extremity: No Calf Tenderness, No Pedal Edema Neurologic/Psychiatric: Alert, Oriented x3, No Motor/Sensory Deficits, Normal Mood/Affect Skin: Normal Color, Warm/Dry Data Review Labs Laboratory Tests 04/06/17 03:31: White Blood Count 6.2, Red Blood Count 4.18L, Hemoglobin 11.0L, Hematocrit 36, Mean Corpuscular Volume 85, Mean Corpuscular Hemoglobin 26, Mean Corpuscular Hemoglobin Concent 31L, Red Cell Distribution Width 13.7, Platelet Count 238, Mean Platelet Volume 11.4H, Neutrophils (%) (Auto) 47, Lymphocytes (%) (Auto) 39 , Monocytes (%) (Auto) 9, Eosinophils (%) (Auto) 6, Basophils (%) (Auto) 1, Neutrophils # (Auto) 2.9, Lymphocytes # (Auto) 2.4, Monocytes # (Auto) 0.6, Eosinophils # (Auto) 0.4H, Basophils # (Auto) 0.0, Sodium Level 140, Potassium Level 3.7, Chloride Level 105, Carbon Dioxide Level 22, Anion Gap 13, Blood Urea Nitrogen 15, Creatinine 0.78, Estimat Glomerular Filtration Rate > 60, BUN/ Creatinine Ratio 19, Glucose Level 118H, Calcium Level 9.3, Total Bilirubin 0.3 , Aspartate Amino Transf (AST/SGOT) 31, Alanine Aminotransferase (ALT/SGPT) 32, Alkaline Phosphatase 60, C-Reactive Protein High Sensitivity 0.64H, Total Protein 7.3, Albumin 3.9, Lipase 40, Serum Test, Qualitative NEGATIVE 04/06/17 04:57: Urine Color YELLOW, Urine Clarity SLIGHTLY CLOUDY, Urine pH 7, Urine Specific [place] 1.010L, Urine Protein 1+H, Urine Glucose (UA) NEGATIVE, Urine Ketones NEGATIVE, Urine Nitrite NEGATIVE, Urine Bilirubin NEGATIVE, Urine Urobilinogen NORMAL, Urine Leukocyte Esterase 2+H, Urine RBC (Auto) NEGATIVE, Urine RBC NONE , Urine WBC 0-2, Urine Squamous Epithelial Cells 10-25H, Urine Crystals NONE, Urine Bacteria TRACE, Urine Casts NONE, Urine Mucus SMALLH, Urine Culture Indicated NO Assessment/Plan Assessment/Plan Assessment/Plan Epigastric and RUQ pain - CTA shows no PE, HIDA negative for leak and CBD patent Constipation - Miralax Plan IV fluids, pain control, check amylase lipase and repeat CBC. Start clears , would monitor overnight because of pain control and to recheck the labs. Pt does appear to have moderate amount of retained fecal material, this could contribute to her pain. COLIN PEREYRA DO Apr 06, 2017 10:41
--- NOTE | 2017-04-06 10:45 | Diagnostic Imaging Report ---
INDICATION: Abdominal pain EXAMINATION: Hepatobiliary scan 5.47 mCi of technetium 99m Choletec was given intravenously. The common duct is patent. The gallbladder is surgically absent. There is no evidence for a bile leak. IMPRESSION: Patent common duct. No evidence for bile leak. Dictated by: Dictated on workstation # [id number]
[2017-04-06] MEDS: ONDANSETRON 4 MG/2 ML (SDV) Z0FRAN IVP PRN (10:50)
[2017-04-06] MEDS: morphine INJ 4 MG/ML 1 ML (VIAL/SYRINGE) IVP PRN ×4 (11:22→18:38)
[2017-04-06] MEDS: KETOROLAC 30 MG/ML VIAL IVP PRN ×2 (12:24→21:22)
[2017-04-06 12:29] VITALS: BP 134/89
[2017-04-06 16:20] VITALS: BP 114/73
[2017-04-06 19:05] VITALS: BP 111/72
[2017-04-06] MEDS ORDERED: ACETAMINOPHEN 500 MG TAB (TYLENOL) PO PRN (21:00)
[2017-04-07] VITALS: BP 103/67
[2017-04-07 04:25] VITALS: BP 102/68
[2017-04-07] MEDS: D5 NS 1000 ML IV SOLUTION 1,000 ML IV SCH ×2 (04:43→15:09)
[2017-04-07 05:25] LABS: BASOPHILS % (AUTO) 0 % (0-10); EOSINOPHILS # (AUTO) 0.1 10^3/uL (0.0-0.3); EOSINOPHILS % (AUTO) 2 % (0-10); LYMPHOCYTES # (AUTO) 0.8 X 10^3 (1.0-4.0); LYMPHOCYTES % (AUTO) 10 % (12-44); MEAN CORPUSCULAR HEMOGLOBIN 26 PG (25-34); MEAN CORPUSCULAR HGB CONC 31 G/DL (32-36); MEAN CORPUSCULAR VOLUME 86 FL (80-99); MEAN PLATELET VOLUME 10.8 FL (7.4-10.4); MONOCYTES # (AUTO) 0.7 X 10^3 (0.0-1.0); MONOCYTES % (AUTO) 9 % (0-12); NEUTROPHILS # (AUTO) 6.1 X 10^3 (1.8-7.8); NEUTROPHILS % (AUTO) 79 % (42-75); PLATELET COUNT 196 10^3/uL (130-400); RED BLOOD COUNT 3.93 10^6/uL (4.35-5.85); RED CELL DISTRIBUTION WIDTH 13.8 % (10.0-14.5); WHITE BLOOD COUNT 7.7 10^3/uL (4.3-11.0)
[2017-04-07 05:49] LABS: AMYLASE 44 U/L (25-125); LIPASE 24 U/L (8-78)
[2017-04-07 08:00] VITALS: BP 104/70
[2017-04-07] MEDS: PANTOPRAZOLE 40 MG/10 ML (PROTONIX) VIAL IV SCH (09:45)
[2017-04-07] MEDS: CALCIUM CARBONATE 500 MG (TUMS) TAB.CHEW PO PRN ×2 (10:42→17:04)
[2017-04-07] MEDS ORDERED: ANTACID SUSP 30 ML UDC (MYLANTA) PO NR (11:45)
[2017-04-07 12:00] VITALS: BP 111/78
--- NOTE | 2017-04-07 12:15 | Progress Note ---
Subjective Date Seen by Provider: Apr 07, 2017 Time Seen by Provider: 12:10 Subjective/Events-last exam Feeling a little better today. Passing some flatus. The pain in epigastric region is now occasionally and then will pass some flatus and feel better. Tolerating liquids. Some reflux she states. Slight fever over night, none since. She is using incentive spirometer some, but hurts in the epigastric region. Overall feeling better today. Objective Exam Vital Signs Date Time Temp Pulse Resp B/P (MAP) Pulse Ox O2 Delivery O2 Flow Rate FiO2 04/07/17 08:00 99.2 97 24 104/70 100 Room Air 04/07/17 04:25 98.0 90 17 102/68 98 Room Air 04/07/17 00:00 97.5 88 18 103/67 96 Room Air 04/06/17 22:00 99.3 04/06/17 22:00 99.3 04/06/17 21:22 101.1 04/06/17 21:00 Room Air 04/06/17 20:58 Room Air 04/06/17 20:40 101.1 04/06/17 19:05 100.7 100 18 111/72 96 Room Air 04/06/17 16:20 99.5 89 16 114/73 99 Room Air 04/06/17 12:29 98.2 74 24 134/89 100 Room Air Capillary Refill : Less Than 3 Seconds General Appearance: WD/WN HEENT: Pharynx Normal, No Pale Conjunctivae (L), No Pale Conjunctivae (R), No Scleral Icterus (L), No Scleral Icterus (R) Neck: Normal Inspection, Supple, No Thyromegaly Respiratory: Lungs Clear, Normal Breath Sounds, No Accessory Muscle Use, No Respiratory Distress Cardiovascular: Regular Rate, Rhythm, No Murmur Gastrointestinal: normal bowel sounds, soft, tenderness (epigastrium and right upper quadrant) Extremity: No Calf Tenderness, No Pedal Edema Neurologic/Psychiatric: Alert, Oriented x3, No Motor/Sensory Deficits, Normal Mood/Affect Skin: Normal Color, Warm/Dry Results Lab Laboratory Tests 04/07/17 05:15: White Blood Count 7.7, Red Blood Count 3.93L, Hemoglobin 10.3L, Hematocrit 34L, Mean Corpuscular Volume 86, Mean Corpuscular Hemoglobin 26, Mean Corpuscular Hemoglobin Concent 31L, Red Cell Distribution Width 13.8, Platelet Count 196, Mean Platelet Volume 10.8H, Neutrophils (%) (Auto) 79H, Lymphocytes (%) (Auto) 10L, Monocytes (%) (Auto) 9, Eosinophils (%) (Auto) 2, Basophils (%) (Auto) 0, Neutrophils # (Auto) 6.1, Lymphocytes # (Auto) 0.8L, Monocytes # (Auto) 0.7, Eosinophils # (Auto) 0.1, Basophils # (Auto) 0.0, Amylase Level 44, Lipase 24 Assessment/Plan Assessment/Plan Assessment/Plan Epigastric and RUQ pain - CTA shows no PE, HIDA negative for leak and CBD patent Constipation - Miralax Reflux patien would like tums/mylanta Feeling better, passing flatus, no bm. will see how she does, keep ambulating and using incentive spirometer if continues to feel better home soon either today or tomorrow Clinical Quality Measures DVT/VTE Risk/Contraindication: Risk Factor Score Per Nursin RFS Level Per Nursing on Admit: 1=Low/No VTE PPX LASHA CASTILLO DO Apr 07, 2017 12:15 pm
[2017-04-07] MEDS ORDERED: POLYETHYLENE GLYCOL 17 GM (MIRALAX) PACK PO NR (14:30)
[2017-04-07 15:52] VITALS: BP 110/70
[2017-04-07] MEDS: ONDANSETRON 4 MG/2 ML (SDV) Z0FRAN IVP PRN (17:04)
[2017-04-07] MEDS: KETOROLAC 30 MG/ML VIAL IVP PRN (17:04)
[2017-04-07] MEDS: SUCRALFATE 1 GM (CARAFATE) TAB PO SCH ×2 (19:02→21:13)
[2017-04-07 20:24] VITALS: BP 99/65
[2017-04-08] VITALS: BP 102/72
[2017-04-08 08:00] VITALS: BP 108/69
[2017-04-08] MEDS: PANTOPRAZOLE 40 MG/10 ML (PROTONIX) VIAL IV SCH (09:12)
[2017-04-08] MEDS: CATHETER FLUSH 10 ML SYR IV PRN (09:12)
[2017-04-08] MEDS: SUCRALFATE 1 GM (CARAFATE) TAB PO SCH (09:12)
[2017-04-08] MEDS ORDERED: PANT40SU PO (10:03)
[2017-04-08] MEDS ORDERED: SUCR1TAB PO (10:03)
--- NOTE | 2017-04-08 10:27 | Progress Note ---
Subjective Date Seen by Provider: Apr 08, 2017 Time Seen by Provider: 10:23 Subjective/Events-last exam sitting in chair. states she's feeling better. had bm and passing flatus. patient states pain in epigastric area still present but very minimal today. wanting to go home. denies n/v fever sweats chills shortness of breath or chest pain. Objective Exam Vital Signs Date Time Temp Pulse Resp B/P (MAP) Pulse Ox O2 Delivery O2 Flow Rate FiO2 04/08/17 08:00 99.0 87 16 108/69 98 Room Air 04/08/17 00:00 98.9 85 19 102/72 97 Room Air 04/07/17 21:00 Room Air 04/07/17 20:24 99.1 83 20 99/65 97 Room Air 04/07/17 15:52 99.8 97 20 110/70 99 Room Air 04/07/17 12:00 99.4 95 20 111/78 99 Room Air I & O 04/09/17 07:00 Intake Total 1000 ml Balance 1000 ml Capillary Refill : Less Than 3 Seconds General Appearance: WD/WN HEENT: Pharynx Normal, No Pale Conjunctivae (L), No Pale Conjunctivae (R), No Scleral Icterus (L), No Scleral Icterus (R) Neck: Normal Inspection, Supple, No Thyromegaly Respiratory: Lungs Clear, Normal Breath Sounds, No Accessory Muscle Use, No Respiratory Distress Cardiovascular: Regular Rate, Rhythm, No Murmur Gastrointestinal: normal bowel sounds, soft, tenderness (epigastrium minimal incisions c/d/i) Extremity: No Calf Tenderness, No Pedal Edema Neurologic/Psychiatric: Alert, Oriented x3, No Motor/Sensory Deficits, Normal Mood/Affect Skin: Normal Color, Warm/Dry Assessment/Plan Assessment/Plan Assessment/Plan Epigastric and RUQ pain - CTA shows no PE, HIDA negative for leak and CBD patent Constipation - Miralax Reflux patien would like tums/mylanta on protonix and started carafate last night Feeling better, passing flatus, + bm. feeling better today tolerating diet will dc home today and have follow up outpatient Final Diagnosis epigastric ruq abdominal pain s/p lap [place] constipation reflux Clinical Quality Measures DVT/VTE Risk/Contraindication: Risk Factor Score Per Nursin RFS Level Per Nursing on Admit: 1=Low/No VTE PPX LASHA CASTILLO DO Apr 08, 2017 10:26 am
[2017-04-08 11:00] VITALS: BP_SYST 108; BP_DIAS 69; BP_DIAS 70
== END 2017-04-08 09:59 | disposition home or self-care (01) ==
LOC: EDUNIT# 03:22 → ER 03:24 → 4TH 06:55 → UNDOADMOB 06:55 → 4TH 07:45 → UNDODISOB 04-08 11:00
PROVIDERS: ADMIT Surgery; ATTEND Surgery
DX: R10.13 Epigastric pain (principal); R10.11 Right upper quadrant pain; R07.9 Chest pain, unspecified; N83.202 Unspecified ovarian cyst, left side; Z90.49 Acquired absence of other specified parts of digestive tract; R06.02 Shortness of breath
CPT/HCPCS: 36415; 71275; 74177; 78226; 80053; 81000; 82150; 83690; 84703; 85025; 86141; 94664; 96361; 96374; 96375; G0378

== ENCOUNTER 2017-09-19 11:37 | Emergency (ER) | payer SELFPAY ==
[~2017-09-19] VITALS: Ht 157.5 cm; Wt 56.7 kg
[~2017-09-19 11:37] MED LIST changes: +ACHD5005 PO; -HYDR-3812 PO; +PANT40SU PO; +SUCR1TAB PO
[2017-09-19] MEDS ORDERED: ASPIRIN 81 MG CHEW (CHILDREN'S ASA) PO STA (12:04)
--- NOTE | 2017-09-19 12:07 | ED Cardiac General ---
History of Present Illness General Chief Complaint: Cardiac/General Problems Stated Complaint: HEART PALPITATIONS Source: patient Exam Limitations: no limitations History of Present Illness Date Seen by Provider: Sep 19, 2017 Time Seen by Provider: 11:59 Initial Comments Here with report of heart palpitations and chest discomfort that she describes as a pressure or tightness. States that the palpitations have been intermittent for years but have been worse over the past few months. She called her doctor's office this morning and told him of what was going on and they told her to go to the ER currently. Patient had an episode last night where she was sitting at the kitchen table and stood up and had the palpitations and chest discomfort. She laid down and felt better after a little while and opted to not come and then was trying to get her doctor's office to day but then was instructed to come here. Has residual mild ache on the left side that is nonradiating. She is not short of breath. Denies weakness currently. Does have some shortness of breath with episodes. Denies nausea, vomiting or sweating. Denies any recent long trips or plane rides. No recent history of trauma or surgeries. Timing/Duration: intermittent, 12-24 hours Severity: mild Location: central Activities at Onset: none Prior CP/Workup: no prior cardiac workup NTG SL BIOMEDICAL SERVICE ENGINEER: No ASA po BIOMEDICAL SERVICE ENGINEER: No Associated Systoms: Chest Pain, No Cough, No Fever/Chills, No Nausea/Vomiting, No Shortness of Air, No Weakness Allergies and Home Medications Allergies Coded Allergies: No Known Drug Allergies (Unverified , 12/06/16) Review of Systems Constitutional: see HPI, No chills, fever EENTM: No Symptoms Reported Respiratory: See HPI Cardiovascular: See HPI Gastrointestinal: No Symptoms Reported Genitourinary: No Symptoms Reported Musculoskeletal: see HPI, muscle pain Skin: no symptoms reported Psychiatric/Neurological: No Symptoms Reported All Other Systems Reviewed Negative Unless Noted: Yes Past Ywafdah-Ozahmo-Xvmuef Hx Patient Social History Alcohol Use: Denies Use Recreational Drug Use: No Smoking Status: Never a Smoker Recent Foreign Travel: No Contact w/Someone Who Travel: No Recent Hopitalizations: No Immunizations Up To Date Tetanus Booster (TDap): Unknown Seasonal Allergies Seasonal Allergies: Yes Surgeries History of Surgeries: Yes (WISDOM TEETH) Surgeries: Section, Gallbladder Respiratory History of Respiratory Disorde: No Cardiovascular History of Cardiac Disorders: No Neurological History of Neurological Disord: 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 pylori) Gastrointestinal Disorders: Abdominal Hernia, Chronic Constipation, Hemorrhoids , Gall Bladder Disease Musculoskeletal History of Musculoskeletal Dis: No Endocrine History of Endocrine Disorders: No HEENT History of HEENT Disorders: No Loss of Vision: Bilateral Hearing Impairment: Denies Cancer History of Cancer: No Psychosocial History of Psychiatric Problem: No Integumentary History of Skin or Integumenta: No Blood Transfusions History of Blood Disorders: Yes (HX ANEMIA DURING ) Adverse Reaction to a Blood Tr: No Reviewed Nursing Assessment Reviewed/Agree w Nursing PMH: Yes Family Medical History Significant Family History: Cancer, Hypertension Family Medial History: Colon cancer 19 MOTHER Hypertension 19 FATHER 19 MOTHER Physical Exam Vital Signs Vital Sign - Last 12Hours 09/19/17 11:37 Temp 98.6 Pulse 82 Resp 18 B/P (MAP) 125/86 (99) Pulse Ox 98 O2 Delivery Room Air Capillary Refill : General Appearance: No Apparent Distress, WD/WN HEENT: PERRL/EOMI, Pharynx Normal Neck: Non Tender, Supple Respiratory: Lungs Clear, Normal Breath Sounds Cardiovascular: Regular Rate, Rhythm, No Murmur Gastrointestinal: Non Tender, Soft Extremity: Normal Capillary Refill, Normal Inspection, Normal Range of Motion, Non Tender, No Calf Tenderness Neurologic/Psychiatric: Alert, Oriented x3 Skin: Normal Color, Warm/Dry Progress/Results/Core Measures Results/Orders Lab Results Laboratory Tests Test 09/19/17 12:17 Range/Units White Blood Count 5.4 4.3-11.0 10^3/uL Red Blood Count 3.89 L 4.35-5.85 10^6/uL Hemoglobin 10.3 L 11.5-16.0 G/DL Hematocrit 32 L 35-52 % Mean Corpuscular Volume 83 80-99 FL Mean Corpuscular Hemoglobin 27 25-34 PG Mean Corpuscular Hemoglobin Concent 32 32-36 G/DL Red Cell Distribution Width 14.7 H 10.0-14.5 % Platelet Count 227 130-400 10^3/uL Mean Platelet Volume 11.4 H 7.4-10.4 FL Neutrophils (%) (Auto) 60 42-75 % Lymphocytes (%) (Auto) 30 12-44 % Monocytes (%) (Auto) 7 0-12 % Eosinophils (%) (Auto) 3 0-10 % Basophils (%) (Auto) 1 0-10 % Neutrophils # (Auto) 3.3 1.8-7.8 X 10^3 Lymphocytes # (Auto) 1.6 1.0-4.0 X 10^3 Monocytes # (Auto) 0.4 0.0-1.0 X 10^3 Eosinophils # (Auto) 0.2 0.0-0.3 10^3/uL Basophils # (Auto) 0.0 0.0-0.1 10^3/uL D-Dimer 0.51 H 0.00-0.49 UG/ML Sodium Level 141 135-145 MMOL/L Potassium Level 3.7 3.6-5.0 MMOL/L Chloride Level 107 98-107 MMOL/L Carbon Dioxide Level 25 21-32 MMOL/L Anion Gap 9 5-14 MMOL/L Blood Urea Nitrogen 15 7-18 MG/DL Creatinine 0.75 0.60-1.30 MG/DL Estimat Glomerular Filtration Rate > 60 BUN/Creatinine Ratio 20 Glucose Level 78 70-105 MG/DL Calcium Level 8.9 8.5-10.1 MG/DL Total Bilirubin 0.4 0.1-1.0 MG/DL Aspartate Amino Transf (AST/SGOT) 20 5-34 U/L Alanine Aminotransferase (ALT/SGPT) 14 0-55 U/L Alkaline Phosphatase 54 40-136 U/L Troponin I < 0.30 <0.30 NG/ML Total Protein 7.4 6.4-8.2 GM/DL Albumin 4.0 3.2-4.5 GM/DL My Orders Orders - DANYELL SLATER MD Ekg Tracing (09/19/17 11:47) Cbc With Automated Diff (09/19/17 12:04) Comprehensive Metabolic Panel (09/19/17 12:04) Fibrin Degradation Products (09/19/17 12:04) Troponin I (09/19/17 12:04) Chest Pa/Lat (2 View) (09/19/17 12:04) Aspirin Chewable Tablet (Baby Aspirin Ch (09/19/17 12:04) Us Venous Lower Ext Tania (09/19/17 13:42) Vital Signs/I&O Vital Sign - Last 12Hours 09/19/17 09/19/17 11:37 14:44 Temp 98.6 Pulse 82 70 Resp 18 18 B/P (MAP) 125/86 (99) Pulse Ox 98 98 O2 Delivery Room Air Room Air Progress Note : Progress Note Seen and evaluated. EKG, labs and chest x-ray ordered. ASA 324 mg by mouth 1. Monitor patient. D-dimer slightly elevated at 0.51. We will get a ultrasound of the lower extremity. 1430: Ultrasound negative. No significant findings at this point. I did recommend to the patient to talk with her primary care doctor about getting a Holter monitor since this appears to be intermittent over the last several months and even years. She will follow-up with her doctor. Copy of chart to Dr. Marin. Discharged home with return precautions. Patient verbalize understanding instructions and agreement with plan. ECG Initial ECG Impression Date: Sep 19, 2017 Initial ECG Impression Time: 11:50 Initial ECG Rate: 78 Initial ECG Rhythm: Normal Sinus Initial ECG Impression: Normal Initial ECG Comparisson: No Previous ECG Available Comment Sinus rhythm with normal axis. No evidence of ST elevation IA. No previous available for comparison. Interpreted by me. Diagnostic Imaging Diagonstic Imaging: Xray Plain Films/CT/US/NM/MRI: chest Comments NAME: KAREN TO [facility] REC#: [id number] PT STATUS: REG ER : 1980 PHYSICIAN: DANYELL SLATER MD ADMIT DATE: 09/19/17/ER Signed Date of Exam: 09/19/17 CHEST PA/LAT (2 VIEW) INDICATION: Heart palpitations. TIME OF EXAMINATION: 12:49 PM. COMPARISON: No prior studies are available for comparison. FINDINGS: The heart size is normal. The lungs are hyperinflated. No infiltrates are seen. There is no effusion or pneumothorax detected. IMPRESSION: Hyperinflation. No other significant abnormality is detected. PQRS Compliance Statement: One or more of the following individualized dose reduction techniques were utilized for this examination: 1. Automated exposure control 2. Adjustment of the mA and/or kV according to patient size 3. Use of iterative reconstruction technique Dictated by: Dictated on workstation # [id number] Dict: 09/19/17 1234 Trans: 09/19/17 1252 Interpreted by: AWA LAY MD Electronically signed by: AWA LAY MD 09/19/17 1252 Reviewed: Reviewed by Me Diagonstic Imaging: Ultrasound Plain Films/CT/US/NM/MRI: leg Comments NAME: KAREN TO [facility] REC#: [id number] PT STATUS: DEP ER : 1980 PHYSICIAN: DANYELL SLTAER MD ADMIT DATE: 09/19/17/ER Signed Date of Exam: 09/19/17 US VENOUS LOWER EXT ATNIA INDICATION: Bilateral leg pain. EXAMINATIONS: Both grayscale and color Doppler imaging of the deep veins of the lower extremities were performed with waveform analysis. FINDINGS: There is no intraluminal filling defect. Normal continuous flow is seen throughout the deep venous systems of both legs, and there is normal response to augmentation. The deep veins compress normally. IMPRESSION: No ultrasound evidence of deep venous thrombosis in either lower extremity. Dictated by: Dictated on workstation # [id number] Dict: 09/19/17 1440 Trans: 09/19/17 1455 Interpreted by: JANETT LANGLEY MD Electronically signed by: JANETT LANGLEY MD 09/19/17 1455 Departure Impression Impression: Primary Impression: Palpitations Disposition: ADMITTED INPATIENT Condition: Stable Departure-Patient Inst. Decision time for Depature: 14:35 Referrals: VERONICA MARIN MD (PCP/Family) Primary Care Physician Patient Instructions: Palpitations (DC) Add. Discharge Instructions: All discharge instructions reviewed with patient and/or family. Voiced understanding. Follow-up with your doctor in a few days for recheck. Return for worse pain, fever, vomiting, weakness, breathing problems or other concerns as needed. Avoid caffeinated beverages and drink plenty of fluids otherwise. Copy Copies To 1: VERONICA MARIN MD, TIMOTHY D MD Sep 19, 2017 12:07
[2017-09-19 12:25] LABS: BASOPHILS % (AUTO) 1 % (0-10); EOSINOPHILS # (AUTO) 0.2 10^3/uL (0.0-0.3); EOSINOPHILS % (AUTO) 3 % (0-10); HEMATOCRIT 32 % (35-52); HEMOGLOBIN 10.3 G/DL (11.5-16.0); LYMPHOCYTES # (AUTO) 1.6 X 10^3 (1.0-4.0); LYMPHOCYTES % (AUTO) 30 % (12-44); MEAN CORPUSCULAR HEMOGLOBIN 27 PG (25-34); MEAN CORPUSCULAR HGB CONC 32 G/DL (32-36); MEAN CORPUSCULAR VOLUME 83 FL (80-99); MEAN PLATELET VOLUME 11.4 FL (7.4-10.4); MONOCYTES # (AUTO) 0.4 X 10^3 (0.0-1.0); MONOCYTES % (AUTO) 7 % (0-12); NEUTROPHILS # (AUTO) 3.3 X 10^3 (1.8-7.8); NEUTROPHILS % (AUTO) 60 % (42-75); PLATELET COUNT 227 10^3/uL (130-400); RED BLOOD COUNT 3.89 10^6/uL (4.35-5.85); RED CELL DISTRIBUTION WIDTH 14.7 % (10.0-14.5); WHITE BLOOD COUNT 5.4 10^3/uL (4.3-11.0)
--- NOTE | 2017-09-19 12:37 | Diagnostic Imaging Report ---
INDICATION: Heart palpitations. TIME OF EXAMINATION: 12:49 PM. COMPARISON: No prior studies are available for comparison. FINDINGS: The heart size is normal. The lungs are hyperinflated. No infiltrates are seen. There is no effusion or pneumothorax detected. IMPRESSION: Hyperinflation. No other significant abnormality is detected. PQRS Compliance Statement: One or more of the following individualized dose reduction techniques were utilized for this examination: 1. Automated exposure control 2. Adjustment of the mA and/or kV according to patient size 3. Use of iterative reconstruction technique Dictated by: Dictated on workstation # [id number]
[2017-09-19 12:44] LABS: ALANINE AMINOTRANSFERASE 14 U/L (0-55); ALKALINE PHOSPHATASE 54 U/L (40-136); BILIRUBIN,TOTAL 0.4 MG/DL (0.1-1.0); BUN/CREATININE RATIO 20; CALCIUM 8.9 MG/DL (8.5-10.1); CARBON DIOXIDE 25 MMOL/L (21-32); CHLORIDE 107 MMOL/L (98-107); CREATININE SERUM 0.75 MG/DL (0.60-1.30); GFR ESTIMATED > 60; GLUCOSE 78 MG/DL (70-105); POTASSIUM 3.7 MMOL/L (3.6-5.0); SODIUM 141 MMOL/L (135-145); TOTAL PROTEIN 7.4 GM/DL (6.4-8.2)
--- NOTE | 2017-09-19 14:43 | Diagnostic Imaging Report ---
INDICATION: Bilateral leg pain. EXAMINATIONS: Both grayscale and color Doppler imaging of the deep veins of the lower extremities were performed with waveform analysis. FINDINGS: There is no intraluminal filling defect. Normal continuous flow is seen throughout the deep venous systems of both legs, and there is normal response to augmentation. The deep veins compress normally. IMPRESSION: No ultrasound evidence of deep venous thrombosis in either lower extremity. Dictated by: Dictated on workstation # [id number]
[2017-09-19 14:44] VITALS: BP 106/8
== END 2017-09-19 14:40 | disposition other institution (70) ==
LOC: EDUNIT# 11:37 → ER 11:39
DX: R00.2 Palpitations (principal); Z87.59 Personal history of other complications of pregnancy, childbirth and the puerperium; Z87.19 Personal history of other diseases of the digestive system; Z80.0 Family history of malignant neoplasm of digestive organs
CPT/HCPCS: 36415; 71046; 80053; 84484; 85025; 85379; 93005; 93970

== ENCOUNTER 2017-09-25 10:58 | Outpatient (RCR) | payer SELFPAY | END 2017-12-24 | disposition home or self-care (01) | LOC: CARD 10:58 | PROVIDERS: ATTEND Family Medicine | DX: R00.2 Palpitations (principal) | CPT/HCPCS: 93225; 93226 ==

== ENCOUNTER → 2019-12-11 | Outpatient (CLI) | payer OTHER ==
--- NOTE | 2019-12-11 13:35 | Diagnostic Imaging Report ---
PROCEDURE: US Non-ob pelvis comp/trans. TECHNIQUE: Multiple realtime grayscale images were obtained of the pelvis in various projections endovaginally. Transabdominal imaging was also performed. INDICATION: Menorrhagia. Uterus is anteverted measuring 7.0 x 4.2 x 5.2 cm. Endometrium is 5 mm in thickness and contains trace fluid. No myometrial masses are identified. Right ovary was not visualized due to bowel gas. Left ovary measures 3.9 x 2.7 x 3.6 cm. The left ovary does contain a cyst measuring 3.9 x 2.6 x 3.6 cm. There is blood flow to the left ovary. Small amount of free fluid is present. IMPRESSION: 3.9 cm left ovarian cyst. No other significant abnormality is detected. Dictated by: Dictated on workstation # [id number]
== END ==
LOC: RAD 11:31
PROVIDERS: ATTEND Obstetrics & Gynecology
DX: N83.202 Unspecified ovarian cyst, left side (principal); N92.0 Excessive and frequent menstruation with regular cycle; N81.9 Female genital prolapse, unspecified; N39.3 Stress incontinence (female) (male); N94.10 Unspecified dyspareunia
CPT/HCPCS: 76830; 76856

== ENCOUNTER 2020-01-09 11:52 | Outpatient (RCR) | payer OTHER ==
[~2020-01-09] VITALS: Ht 157 cm; Wt 66.0 kg
[2020-01-09] MEDS ORDERED: NORG1TAB87 PO (11:59)
[2020-01-09] MEDS ORDERED: FEXO1TAB43 PO (11:59)
[2020-01-09 12:02] VITALS: BP 115/74
[2020-01-09] MEDS ORDERED: MULT-228 PO (12:02)
[2020-01-09 12:42] LABS: BILIRUBIN,URINE NEGATIVE (NEGATIVE); CLARITY,URINE CLEAR; COLOR,URINE YELLOW; GLUCOSE, URINE (UA) NEGATIVE (NEGATIVE); KETONES,URINE NEGATIVE (NEGATIVE); LEUKOCYTE ESTERASE ,URINE TRACE (NEGATIVE); NITRITE,URINE NEGATIVE (NEGATIVE); PROTEIN,URINE NEGATIVE (NEGATIVE)
[2020-01-09 12:54] LABS: BACTERIA,URINE FEW /HPF; WBC,URINE 0-2 /HPF
[2020-01-09 12:59] LABS: BASOPHILS % (AUTO) 1 % (0-10); EOSINOPHILS # (AUTO) 0.1 10^3/uL (0.0-0.3); EOSINOPHILS % (AUTO) 2 % (0-10); HEMATOCRIT 38 % (35-52); HEMOGLOBIN 12.4 G/DL (11.5-16.0); LYMPHOCYTES # (AUTO) 1.5 X 10^3 (1.0-4.0); LYMPHOCYTES % (AUTO) 23 % (12-44); MEAN CORPUSCULAR HEMOGLOBIN 30 PG (25-34); MEAN CORPUSCULAR HGB CONC 33 G/DL (32-36); MEAN CORPUSCULAR VOLUME 91 FL (80-99); MEAN PLATELET VOLUME 11.3 FL (7.4-10.4); MONOCYTES # (AUTO) 0.4 X 10^3 (0.0-1.0); MONOCYTES % (AUTO) 7 % (0-12); NEUTROPHILS # (AUTO) 4.3 X 10^3 (1.8-7.8); NEUTROPHILS % (AUTO) 68 % (42-75); PLATELET COUNT 238 10^3/uL (130-400); RED CELL DISTRIBUTION WIDTH 12.2 % (10.0-14.5); WHITE BLOOD COUNT 6.4 10^3/uL (4.3-11.0)
[2020-01-14] MEDS ORDERED: IBUP-844 PO (08:27)
[2020-01-14] MEDS ORDERED: DCS100C PO (08:27)
[2020-01-14] MEDS ORDERED: ACET-93 PO (08:27)
[2020-01-14] MEDS ORDERED: OXYC5TAB96 PO (08:27)
== END 2020-01-09 14:41 | disposition home or self-care (01) ==
LOC: SDC 11:52 → EDSTATUS 13:00 → PREOP 14:41
PROVIDERS: ATTEND Obstetrics & Gynecology
DX: Z01.818 Encounter for other preprocedural examination (principal); Z11.59 Encounter for screening for other viral diseases; N83.202 Unspecified ovarian cyst, left side
CPT/HCPCS: 36415; 81000; 85025; 86850; 86900; 86901; 87081; 87635

== ENCOUNTER → 2021-12-07 | Outpatient (CLI) | payer OTHER ==
[~2021-12-07] MED LIST changes: +ACET-93 PO; +DOCU-239 PO; +FEXO1TAB43 PO; +GADOTERATE 0.5 MMOL/ML (CLARISCAN) 15 ML VIAL IV ONE; +IBUP-844 PO; +MULT-228 PO; +NORG1TAB87 PO; +OXC5T PO
--- NOTE | 2021-12-07 09:40 | Diagnostic Imaging Report ---
CLINICAL INDICATION: Patient is having numbness and tingling in her extremities. No known injury. EXAM: MRI of the cervical spine performed without and with 12 cc of Clariscan IV contrast. Sequences include sagittal T1, sagittal T2, sagittal T2 fat-sat, axial T1, axial T2, axial T1 post IV contrast, and sagittal T1 fat-sat post IV contrast. COMPARISON: None. FINDINGS: There is no abnormal IV contrast enhancement. Cervical spine has normal alignment with no fracture or dislocation. There is normal craniocervical and anterior atlanto-odontoid alignment. Cervical spinal cord has normal anatomic appearance with no abnormal cord signal. Limited visualization of the posterior fossa is unremarkable. There is no paraspinal soft tissue abnormality. C1-C2: Unremarkable. C2-C3: Unremarkable. C3-C4: Unremarkable. C4-C5: Unremarkable. C5-C6: There is a diffuse disk bulge with moderate to severe loss of height with mildly hypertrophic posterior disk spurs and bilateral uncinate spurs (left side more than the right). There is moderate to severe left neuroforaminal narrowing and mild right neuroforaminal narrowing. There is moderate central canal stenosis. C6-C7: There is a small posterior disk bulge with mild central canal narrowing. There is mild right neuroforaminal narrowing. There is no significant left neuroforaminal narrowing. C7-T1: Unremarkable. IMPRESSION: 1: There is a C5-C6 diffuse disk bulge with hypertrophic uncinate spurs. There is moderate central canal stenosis, moderate to severe left neuroforaminal narrowing, and mild right neuroforaminal narrowing. 2: There is a small posterior disk bulge at the C6-C7 level. Dictated by: Dictated on workstation # [id number]
--- NOTE | 2021-12-07 11:01 | Diagnostic Imaging Report ---
Clinical indications: Patient is having numbness and tingling in her extremities. No known injury. Exam: MRI of the thoracic spine performed without and with 12 cc of Clariscan IV contrast. Sequences include sagittal T1, sagittal T2, sagittal T2 fat-sat, axial T2, axial T1, axial T1 post IV contrast, and sagittal T1 fat-sat post IV contrast. Comparison: None. Findings: There is no abnormal IV contrast enhancement seen on this exam. Thoracic spine has normal alignment with no fracture or dislocation. There is no abnormal paraspinal soft tissue signal or abnormality. The thoracic spinal cord has normal anatomic appearance with no abnormal cord signal. There are small spurs involving the mid thoracic spine. There is a minimal sized posterior disk bulge involving the T7-T8 level. There is endplate irregularity and Schmorl's node involving the T7-T8 level and T10-T12 levels. There is no significant central canal or neural foramen narrowing. There is Modic type II degenerative signal changes anteriorly involving the T6-T7 level. Impression: 1: There is no acute thoracic spine fracture or dislocation. There is no abnormal IV contrast enhancement. 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 Dictated by: Dictated on workstation # [id number]
== END ==
LOC: RAD 08:00
PROVIDERS: ATTEND Family Medicine
DX: M47.814 Spondylosis without myelopathy or radiculopathy, thoracic region (principal); M50.223 Other cervical disc displacement at C6-C7 level; M48.02 Spinal stenosis, cervical region
CPT/HCPCS: 72156; 72157

== ENCOUNTER → 2021-12-08 | Outpatient (CLI) | payer OTHER ==
--- NOTE | 2021-12-08 12:01 | Diagnostic Imaging Report ---
CLINICAL INDICATION: Patient is having numbness and tingling in her extremities. Patient is also having headache and dizziness. EXAM: MRI of the brain performed without and with 9 cc of IV contrast. Sequences include axial DWI, ADC map, axial gradient echo, axial FLAIR, axial T1, axial T2, axial T1 post IV contrast whole brain, coronal T1 fat-sat post IV contrast whole brain, and sagittal T1 fat-sat post IV contrast whole brain. COMPARISON: None. FINDINGS: There is a subtle 7 mm amorphous area of high T2 signal involving the posterior right frontal lobe centrum semiovale region seen on axial T2 and FLAIR sequence images 16. There is no associated IV contrast enhancement. There is no evidence of acute cerebral infarct, intracranial hemorrhage, or gross mass effect. There is no abnormal IV contrast enhancement. The brain parenchymal volume appears appropriate for patient's age. There is normal willis-white matter distinction. There is no significant midline shift or herniation. The [place] vascular structures show no gross abnormality as visualized. The pituitary gland, sella, and suprasellar regions are unremarkable as visualized. There is no evidence of hydrocephalus. The basal cisterns are unremarkable. The skull, extracranial soft tissue, and orbits are unremarkable. The paranasal sinuses are unremarkable. There is minimal fluid involving right mastoid air cells. IMPRESSION: 1: There is a subtle 7 mm area of high T2 signal involving the posterior right frontal lobe centrum semiovale white matter region. This is nonspecific. Demyelinating process cannot be completely excluded. Comparison to prior brain imaging would help better evaluate for chronicity. Otherwise, follow-up MRI of the brain in three months is suggested to evaluate for interval change, unless patient has progressive or new symptoms and needs an MRI sooner. 2: Otherwise, the remainder of the brain is unremarkable. 3: There is minimal fluid involving the right mastoid air cells. Dictated by: Dictated on workstation # [id number]
--- NOTE | 2021-12-08 12:04 | Diagnostic Imaging Report ---
CLINICAL INDICATION: Patient is having numbness and tingling in her extremities. EXAM: MRI of the lumbar spine performed without and with 12 cc of Clariscan IV contrast. Sagittal T2, sagittal T1, sagittal T2 fat-sat, axial T1, axial T2, axial T1 post IV contrast, and sagittal T1 fat-sat post IV contrast. COMPARISON: None. FINDINGS: There is no abnormal IV contrast enhancement seen on this exam. There is no abnormal IV contrast enhancement. Five lumbar-type vertebra are identified. Lumbar spine has normal alignment with no fracture or dislocation. The lumbar vertebrae have normal T1 and T2 signal. Likely enhancing vessel is seen posteriorly within the thecal sac extending in a craniocaudal direction. The visualized portions of the distal spinal cord, conus medullaris, and cauda equina have normal anatomic appearance. The conus medullaris tip is seen at the upper L1 vertebral body level. No paraspinal soft tissue abnormality is seen. There is no significant central spinal canal or neural foramen narrowing. There is no significant degenerative disease. The intervertebral disc spaces are well-preserved. IMPRESSION: Unremarkable MRI of the Lumbar spine. Dictated by: Dictated on workstation # [id number]
== END ==
LOC: RAD 08:00
PROVIDERS: ATTEND Family Medicine
DX: R20.2 Paresthesia of skin (principal); R51.9 Headache, unspecified; R42 Dizziness and giddiness
CPT/HCPCS: 70553; 72158

== ENCOUNTER → 2022-05-29 | Outpatient (CLI) | payer OTHER ==
--- NOTE | 2022-05-29 11:09 | Diagnostic Imaging Report ---
CLINICAL INDICATION: Previous brain MRI showed an abnormal area. Follow-up exam. Exams: 1: MRI of the brain performed without and with 12 cc of Clariscan IV contrast. Sequences include axial DWI, ADC map, coronal gradient echo, axial FLAIR, axial T1, axial T2, axial T1 post IV contrast whole brain, coronal T1 fat-sat post IV contrast whole brain, and sagittal T1 fat-sat post IV contrast whole brain. COMPARISON: MRI of the brain with and without contrast dated 12/08/2021. FINDINGS: There is no evidence of acute cerebral infarct, intracranial hemorrhage, or gross mass effect. Stable submillimeter subtle area of high T2 signal involving the posterior right frontal lobe centrum semiovale region. There is no associated IV contrast enhancement. There is no other abnormal brain parenchymal signal. The brain parenchymal volume appears appropriate for patient's age. There is normal willis-white matter distinction. There is no significant midline shift or herniation. The [place] vascular structures show no gross abnormality as visualized. There is no evidence of hydrocephalus. The basal cisterns are unremarkable. The skull, extracranial soft tissue, and orbits are unremarkable. The paranasal sinuses are unremarkable. Temporal bones show no significant abnormality. IMPRESSION: 1: Stable MRI of the brain with no evidence of acute intracranial process. There is no abnormal IV contrast enhancement. 2: Stable nonspecific, chronic subtle area of high T2 signal involving the posterior right frontal lobe centrum semiovale region. No further follow-up is necessary unless patient has new symptoms. Dictated by: Dictated on workstation # [id number]
== END ==
LOC: RAD 08:59
PROVIDERS: ATTEND Family Medicine
DX: R93.89 Abnormal findings on diagnostic imaging of other specified body structures (principal)
CPT/HCPCS: 70553